=== PATIENT | female | born 2000 | race Hispanic/Latino ===

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

== ENCOUNTER 2023-04-07 12:27 | Outpatient (CLI) | payer BC | END 2023-04-07 12:28 | disposition home or self-care (01) | LOC: BICMRI 12:27 | PROVIDERS: ATTEND Orthopaedic Surgery | DX: R22.42 Localized swelling, mass and lump, left lower limb (principal); R23.4 Changes in skin texture ==